=== PATIENT | female | born 1955 | race Two or more races ===

== ENCOUNTER 2017-12-25 06:48 | Day surgery (SDC) | payer OTHER ==
[~2017-12-25] VITALS: Ht 160 cm; Wt 122.5 kg
[2017-12-25 07:30] VITALS: BP 134/85
== END 2017-12-25 09:00 | disposition home or self-care (01) ==
LOC: GI 06:48 → OR 08:30 → GI 08:30
DX: Z12.11 Encounter for screening for malignant neoplasm of colon (principal); E11.9 Type 2 diabetes mellitus without complications; I10 Essential (primary) hypertension; E78.1 Pure hyperglyceridemia; Z98.51 Tubal ligation status; Z79.84 Long term (current) use of oral hypoglycemic drugs; Z53.29 Procedure and treatment not carried out because of patient's decision for other reasons
CPT/HCPCS: 45378; J1200; J1610; J2060; J2250; J2310; J3010; J3490